=== PATIENT | male | born 1955 ===

== ENCOUNTER → 2023-01-30 09:26 | Outpatient (CLI) | payer MEDICARE, BC, SELFPAY ==
--- NOTE | ~2023-01-30 | MR_ITS ---
MRI of the cervical spine Clinical History: Abnormal renal Technique: Axial T2-weighted and gradient images, and sagittal T1-weighted, T2-weighted, and STIR joshua ges were acquired. Findings: There is mild reversal normal cervical lordosis. No fracture or subluxation evident. There is reactive marrow edema about the C4-C5 disc space due to underlying degenerative disc disease. At C2-C3, there is mild to moderate degenerative disc 9. There is minimal disc bulge. No spinal canal stenosis, cord compression, or neural foraminal narrowing. At C3-C4, there is minimal disc osteophyte complex. No nancy spinal canal stenosis, cord compression, or neural foraminal narrowing. At C4-C5, there is disc osteophyte complex, with mild canal stenosis and mild ventral cord compressio n. There is advanced left neural foraminal narrowing. Probable minimal right neural foraminal narrowi ng. At C5-C6, there is mild disc osteophyte complex. There is mild canal stenosis without nancy cord comp ression. There is mild bilateral neural foraminal narrowing, left worse than right. At C6-C7, there is mild disc osteophyte complex and there is mild canal stenosis without nancy cord c ompression. There is bilateral neural foraminal narrowing. No abnormal signal seen in the spinal cord. Paravertebral soft tissues are unremarkable. Impression: Moderate to advanced degenerative spondylosis, as detailed above, worst at C4-C5. Reviewed, dictated and finalized at [facility]. R [employer] Impression: Moderate to advanced degenerative spondylosis, as detailed above, worst at C4-C 5.
--- NOTE | ~2023-01-30 | MR_ITS ---
MRI of the lumbar spine Clinical History: Spinal stenosis, postlaminectomy syndrome Technique: Axial T2-weighted images, and sagittal T1-weighted, T2-weighted, and T2 fat-sat images wer e acquired. Findings: No acute fracture identified. Probable bilateral L5 pars interarticularis defects. There is 13 mm anterolisthesis of L5 over S1. There is fusion across the L4-L5 disc space, with posterior dec ompression at L5. No suspicious bone marrow signal abnormality seen. At L1-L2, there is minimal disc bulge with moderate facet arthropathy. There is minimal central canal stenosis. Bilateral neural foramina are preserved. At L2-L3, disc bulge and moderate facet arthropathy result in moderate to severe spinal canal stenosi s/thecal sac compression. There is mild to moderate bilateral neural foraminal narrowing. At L3-L4, there is mild disc bulge with mild to moderate facet arthropathy. No nancy central canal st enosis. There is mild bilateral neural foraminal narrowing. At L4-L5, there is no disc bulge or herniation. No spinal canal stenosis. There is moderate bilateral neural foraminal narrowing. At L5-S1, there is disc uncovering with severe facet arthropathy. There is posterior decompression, w ithout nancy central canal stenosis. There is severe bilateral neural foraminal compromise. Paravertebral soft tissues are unremarkable. Impression: 13 mm anterolisthesis of L5 over S1, with probable underlying bilateral L5 pars interarticularis defe cts. Fusion across the L4-L5 disc space with posterior decompression L5. Severe bilateral neural foraminal narrowing at L5-S1. Additional degenerative changes, as detailed ab ove. Reviewed, dictated and finalized at location . [employer] Impression: 13 mm anterolisthesis of L5 over S1, with probable underlying bilateral L5 pars interarticularis defects. Fusion across the L4-L5 disc space with posterior decompression L5. Severe bilateral neural foraminal narrowing at L5-S1. Additional degenerative c hanges, as detailed above.
== END ==
PROVIDERS: PCP Physician Assistant; Visit Provider Physician Assistant
DX: R29.2 Abnormal reflex (principal); M48.062 Spinal stenosis, lumbar region with neurogenic claudication; M96.1 Postlaminectomy syndrome, not elsewhere classified; Z98.1 Arthrodesis status; M50.321 Other cervical disc degeneration at C4-C5 level; M51.36 Other intervertebral disc degeneration, lumbar region
CPT/HCPCS: 72141; 72148